=== PATIENT | female | born 1985 | race Caucasian/White ===

== ENCOUNTER 2017-05-05 00:36 | Emergency (ER) | payer OTHER ==
[~2017-05-05] VITALS: Ht 165.1 cm; Wt 58.5 kg
[~2017-05-05 00:36] MED LIST: IBUP-238 PO; Z.0.BCPILL PO; ZITH250T PO
[2017-05-05 00:48] VITALS: BP 90/59; PULSE 64; RESP 16; TEMP 97.6; O2SAT 100
--- NOTE | 2017-05-05 01:09 | PD ---
HPI Chief Complaint: syncope Time Seen by Provider: 00:54 Travel History International Travel<30 days: No Contact w/Intl Traveler<30days: No Traveled to known affect area: No History of Present Illness HPI 31-year-old female was brought in by her was syncope lightheadedness dizziness and nausea. Patient states the symptoms started about an hour prior coming to the emergency room. Patient was sitting down with her on the couch. Her went outside and he heard a noise of patient falling down. Patient was awake when he came to her. Patient's was helping the patient to the bathroom and patient had a syncopal episode. Patient was pale and diaphoretic at that time. Patient's states that episode lasted about a minute. Patient denies any headache. Patient denies any visual change. Patient denies any neck pain. Patient denies any chest pain or shortness of breath. Patient denies abdominal pain. Patient states that she has nausea but no vomiting or diarrhea. Patient denies any dysuria or frequency. Patient denies any vaginal discharge or bleeding. Patient denies any fever chills. Patient had similar syncopal episode a few years ago. Patient's states that she was dehydrated and hypotensive at that time. Patient states that she has been taking Araseli for the past 2 days for allergy. Patient denies any alcohol or drug abuse. PFSH Past Medical History Diminished Hearing: No Gestational Age in Weeks: 20 Immunizations Current: Yes : 1 Para: 1 Past Surgical History Other Surgery: Yes (BREAST AUGMENTATION) Social History Alcohol Use: No Tobacco Use: No Substance Use: No Allergies-Medications (Allergen,Severity, Reaction): Coded Allergies: No Known Allergies (Verified , 05/05/17) Reported Meds & Prescriptions Reported Meds & Active Scripts Active No Active Prescriptions or Reported Medications Review of Systems General / Constitutional: No: Fever Eyes: No: Visual changes HENT: Positive: Lightheadedness, No: Headaches Cardiovascular: No: Chest Pain or Discomfort Respiratory: No: Shortness of Breath Gastrointestinal: Positive: Nausea, No: Abdominal Pain Genitourinary: No: Dysuria Musculoskeletal: No: Pain Skin: No Rash Neurologic: No: Weakness Psychiatric: No: Depression Endocrine: No: Polydipsia Hematologic/Lymphatic: No: Easy Bruising Physical Exam Narrative GENERAL: Well-nourished, well-developed patient. SKIN: Focused skin assessment warm/dry. HEAD: Normocephalic. EYES: No scleral icterus. No injection or drainage. NECK: Supple, trachea midline. No JVD or lymphadenopathy. CARDIOVASCULAR: Regular rate and rhythm without murmurs, gallops, or rubs. RESPIRATORY: Breath sounds equal bilaterally. No accessory muscle use. GASTROINTESTINAL: Abdomen soft, non-tender, nondistended. MUSCULOSKELETAL: No cyanosis, or edema. BACK: Nontender without obvious deformity. No CVA tenderness. Neurologic exam: Patient's awake and alert oriented 3. No obvious focal neurological deficit. Data Data Last Documented VS Vital Signs Date Time Temp Pulse Resp B/P Pulse Ox O2 Delivery O2 Flow Rate FiO2 05/05/17 01:07 Room Air 05/05/17 00:48 97.6 64 16 90/59 100 Orders Electrocardiogram (05/05/17 01:02) Complete Blood Count With Diff (05/05/17 01:02) Comprehensive Metabolic Panel (05/05/17 01:02) Urinalysis - C+S If Indicated (05/05/17 01:02) Thyroid Stimulating Hormone (05/05/17 01:02) Chest, Single Ap (05/05/17 01:02) Iv Access Insert/Monitor (05/05/17 01:02) Ecg Monitoring (05/05/17 01:02) Oximetry (05/05/17 01:02) Ed Urine Pregnancytest Poc (05/05/17 01:02) Sodium Chlor 0.9% 1000 Ml Inj (Ns 1000 M (05/05/17 01:15) Sodium Chlor 0.9% 1000 Ml Inj (Ns 1000 M (05/05/17 01:15) Ceftriaxone Inj (Rocephin Inj) (05/05/17 02:00) Labs Laboratory Tests Test 05/05/17 01:20 White Blood Count 7.4 TH/MM3 Red Blood Count 4.36 MIL/MM3 Hemoglobin 13.7 GM/DL Hematocrit 39.6 % Mean Corpuscular Volume 90.9 FL Mean Corpuscular Hemoglobin 31.5 PG Mean Corpuscular Hemoglobin 34.6 % Concent Red Cell Distribution Width 11.9 % Platelet Count 218 TH/MM3 Mean Platelet Volume 9.4 FL Neutrophils (%) (Auto) 54.2 % Lymphocytes (%) (Auto) 37.3 % Monocytes (%) (Auto) 3.3 % Eosinophils (%) (Auto) 4.5 % Basophils (%) (Auto) 0.7 % Neutrophils # (Auto) 4.1 TH/MM3 Lymphocytes # (Auto) 2.7 TH/MM3 Monocytes # (Auto) 0.2 TH/MM3 Eosinophils # (Auto) 0.3 TH/MM3 Basophils # (Auto) 0.1 TH/MM3 CBC Comment DIFF FINAL Differential Comment Urine Color YELLOW Urine Turbidity SLIGHT Urine pH 6.0 Urine Specific [place] 1.027 Urine Protein 30 mg/dL Urine Glucose (UA) NEG mg/dL Urine Ketones 15 mg/dL Urine Occult Blood TRACE Urine Nitrite NEG Urine Bilirubin NEG Urine Leukocyte Esterase NEG Urine RBC 10-14 /hpf Urine WBC 6-8 /hpf Urine Squamous Epithelial > 8 /hpf Cells Urine Bacteria FEW /hpf Urine Hyaline Casts 3-5 /lpf Urine Mucus MOD /lpf Microscopic Urinalysis Comment CULT NOT INDICATED Sodium Level 142 MEQ/L Potassium Level 3.8 MEQ/L Chloride Level 106 MEQ/L Carbon Dioxide Level 26.5 MEQ/L Anion Gap 10 MEQ/L Blood Urea Nitrogen 18 MG/DL Creatinine 0.82 MG/DL Estimat Glomerular Filtration 81 ML/MIN Rate Random Glucose 84 MG/DL Calcium Level 8.3 MG/DL Total Bilirubin 0.3 MG/DL Aspartate Amino Transf 28 U/L (AST/SGOT) Alanine Aminotransferase 30 U/L (ALT/SGPT) Alkaline Phosphatase 63 U/L Total Protein 7.2 GM/DL Albumin 3.8 GM/DL Thyroid Stimulating Hormone 1.590 uIU/ML 3rd Gen [facility] Medical Decision Making Medical Screen Exam Complete: Yes Emergency Medical Condition: Yes Interpretation(s) Last Impressions Chest X-Ray 05/05/17 0102 Signed Impressions: Service Date/Time: Friday, May 05, 2017 01:05 - CONCLUSION: Normal examination. Prince Corbett MD 1358 AM. CBC within normal limit. CMP within normal limit. UA positive for WBC or RBC bacteria. Differential Diagnosis Differential diagnosis including vasovagal reaction, dehydration, electrolyte imbalance, TIA, CVA, arrhythmia, sepsis. Narrative Course 31-year-old female with syncope. Patient's hypotensive. Normal saline solution 2 L IV bolus. Rocephin 1 g IV. Diagnosis Primary Impression: Dehydration Additional Impression: UTI (urinary tract infection) Qualified Code: N30.00 - Acute cystitis without hematuria Additional Instructions: Encourage by mouth fluid. Take Bactrim DS as directed. Follow-up with personal physician. Return if worse. Med/Other Pt SpecificInfo: Prescription(s) given Scripts Sulfamethoxazole-Trimethoprim (Bactrim DS)800-160 Mg Tab1 Tab PO BID #14 TAB Prov:Jose Scott MD 05/05/17 Disposition: 01 DISCHARGE HOME Condition: Stable Jose Scott MD May 05, 2017 01:09
[2017-05-05] MEDS ORDERED: SODIUM CHLOR 0.9% 1000 ML INJ 1,000 ML IV ONE ×2 (01:15)
--- NOTE | 2017-05-05 01:24 | RADRPT ---
EXAM DATE/TIME: 05/05/2017 01:05 [facility] COMPARISON: No previous studies available for comparison. INDICATIONS : Shortness of breath. MEDICAL HISTORY : None. SURGICAL HISTORY : None. ENCOUNTER: Initial ACUITY: 1 day PAIN SCORE: 0/10 LOCATION: Bilateral chest FINDINGS: A single view of the chest demonstrates the lungs to be symmetrically aerated without evidence of mas s, infiltrate or effusion. The cardiomediastinal contours are unremarkable. Osseous structures are intact. CONCLUSION: Normal examination. Prince Corbett MD on May 05, 2017 at 1:22 Board Certified Radiologist. This report was verified electronically.
[2017-05-05 01:36] LABS: AUTOMATED NEUTROPHIL # 4.1 TH/MM3 (1.8-7.7); BASOPHIL # 0.1 TH/MM3 (0-0.2); BASOPHIL % 0.7 % (0.0-2.0); BLOOD, URINE TRACE (NEG); EOSINOPHIL # 0.3 TH/MM3 (0-0.4); EOSINOPHIL % 4.5 % (0.0-4.0); GLUCOSE,URINE NEG (NEG); HEMATOCRIT 39.6 % (35.0-46.0); HEMO FLAGS DIFF FINAL; KETONE, URINE 15 mg/dL (NEG); LYMPH % 37.3 % (9.0-44.0); LYMPHOCYTE # 2.7 TH/MM3 (1.0-4.8); MEAN CELL VOLUME 90.9 FL (80.0-100.0); MEAN CORPUSCULAR HEMOGLOBIN 31.5 PG (27.0-34.0); MEAN CORPUSCULAR HGB CONC 34.6 % (32.0-36.0); MONO % 3.3 % (0.0-8.0); NEUT % 54.2 % (16.0-70.0); NITRITE,URINE NEG (NEG); PLATELET COUNT 218 TH/MM3 (150-450); RED BLOOD COUNT 4.36 MIL/MM3 (4.00-5.30); RED CELL DISTRIBUTION WIDTH 11.9 % (11.6-17.2); WHITE BLOOD COUNT 7.4 TH/MM3 (4.0-11.0)
[2017-05-05 01:43] LABS: CHLORIDE 106 MEQ/L (98-107); SODIUM (NA) 142 MEQ/L (136-145)
[2017-05-05 01:45] LABS: MUCUS URINE MOD /lpf (OCC); SQUAMOUS EPITHELIAL CELL URINE > 8 /hpf (0-5); URINE COLOR YELLOW (YELLW/STRAW)
[2017-05-05 01:46] LABS: BACTERIA, URINE FEW /hpf
[2017-05-05 01:47] LABS: ANION GAP 10 MEQ/L (5-15); BICARBONATE 26.5 MEQ/L (21.0-32.0); BLOOD UREA NITROGEN 18 MG/DL (7-18); COMMENT (UR) CULT NOT INDICATED; CULTURE IF INDICATED CULT NOT INDICATED
[2017-05-05 01:50] VITALS: BP 111/65; PULSE 75; RESP 16; O2SAT 98
[2017-05-05 01:50] LABS: ALT (GPT) 30 U/L (10-53); AST (GOT) 28 U/L (15-37); GLOMERULAR FILTRATION RATE 81 ML/MIN (>89)
[2017-05-05 01:52] LABS: TOTAL BILIRUBIN ADULT 0.3 MG/DL (0.2-1.0)
[2017-05-05 01:53] LABS: ALKALINE PHOSPHATASE 63 U/L (45-117)
[2017-05-05 01:58] LABS: POTASSIUM 3.8 MEQ/L (3.5-5.1)
[2017-05-05] MEDS ORDERED: cefTRIAXone INJ 1,000 MG in SODIUM CHLORIDE 0.9% INJ 100 ML IV ONE (02:00)
[2017-05-05] MEDS ORDERED: BACT800T5 PO (02:05)
[2017-05-05 02:59] VITALS: BP 116/78
--- NOTE | 2017-05-05 13:22 | EKG ---
Date Performed: 05/05/2017 Time Performed: 01:10:14 PTAGE: 31 years EKG: SINUS BRADYCARDIA WITH SINUS ARRHYTHMIA POSSIBLE RIGHT VENTRICULAR CONDUCTION DELAY BORDERL INE ECG Compared to prior tracing no significant change PREVIOUS TRACING : 10/16/2009 00.35 DOCTOR: Unruly Strange Interpretating Date/Time 05/05/2017 13:20:39
== END 2017-05-05 03:10 | disposition home or self-care (01) ==
LOC: PHED 00:36
DX: E86.0 Dehydration (principal); N30.00 Acute cystitis without hematuria; R94.31 Abnormal electrocardiogram [ECG] [EKG]; I95.9 Hypotension, unspecified; R11.0 Nausea
CPT/HCPCS: 71010; 80053; 81001; 84443; 84703; 85025; 93005; 96360; 96361; 96365; 99285; J0696; J7030

== ENCOUNTER 2017-08-02 14:25 | Emergency (ER) | payer OTHER ==
[~2017-08-02] VITALS: Ht 165.1 cm; Wt 59.4 kg
[~2017-08-02 14:25] MED LIST changes: +BACT800T5 PO; -IBUP-238 PO; -Z.0.BCPILL PO; -ZITH250T PO
[2017-08-02 14:27] VITALS: BP 124/78; PULSE 94; RESP 18; TEMP 99; O2SAT 99
[2017-08-02] MEDS ORDERED: HYDR-3534 PO (15:40)
[2017-08-02] MEDS ORDERED: AMOX500C PO (15:40)
--- NOTE | 2017-08-02 15:40 | PD ---
HPI Chief Complaint: Headache Time Seen by Provider: 15:26 Travel History International Travel<30 days: No Contact w/Intl Traveler<30days: No Traveled to known affect area: No History of Present Illness HPI 32-year-old female is having headache. She's having headache behind both of her eyes as a throbbing type of pain. It's worse when she bends over. It started Friday night. She developed some fever and is had some mild congestion. Started on the left side and now is on both sides. Did not start suddenly. She does not have a history of migraine headaches and generally quite healthy. There is no chance of . PFSH Past Medical History Medical History: Denies Significant Hx Diminished Hearing: No Gestational Age in Weeks: 20 Immunizations Current: Yes Tetanus Vaccination: Unknown Influenza Vaccination: Yes ?: Not LMP: 1.5 WEEK AGO : 1 Para: 1 Past Surgical History Section: Yes Oral Surgery: Yes (wisdom teeth) Other Surgery: Yes (BREAST AUGMENTATION) Social History Alcohol Use: Yes (occ) Tobacco Use: No Substance Use: No Allergies-Medications (Allergen,Severity, Reaction): Coded Allergies: No Known Allergies (Verified , 08/02/17) Reported Meds & Prescriptions Reported Meds & Active Scripts Active Review of Systems General / Constitutional: Positive: Fever, No: Chills Eyes: No: Diploplia, Blurred Vision HENT: Positive: Rhinitis, No: Headaches, Nosebleed, Earache Cardiovascular: No: Chest Pain or Discomfort, Palpitations Respiratory: No: Cough, Shortness of Breath Gastrointestinal: No: Vomiting, Diarrhea Genitourinary: No: Dysuria Musculoskeletal: No: Myalgias, Arthralgias Skin: No Rash Neurologic: Positive: Headache, No: Weakness Endocrine: No: Heat Intolerance Hematologic/Lymphatic: No: Easy Bruising Physical Exam Narrative GENERAL: Well-developed female SKIN: Focused skin assessment warm/dry. HEAD: Atraumatic. Normocephalic. EYES: Pupils equal and round. No scleral icterus. No injection or drainage. ENT: No nasal bleeding. There is thick nasal discharge. The nasal mucosa is extremely erythematous and swollen. She is tender over both maxillary sinuses Mucous membranes pink and moist. NECK: Trachea midline. No JVD. Neck is supple CARDIOVASCULAR: Regular rate and rhythm. No murmur appreciated. RESPIRATORY: No accessory muscle use. Clear to auscultation. Breath sounds equal bilaterally. GASTROINTESTINAL: Abdomen soft, non-tender, nondistended. Hepatic and splenic margins not palpable. MUSCULOSKELETAL: No obvious deformities. No clubbing. No cyanosis. No edema. NEUROLOGICAL: Awake and alert. No obvious cranial nerve deficits. Motor grossly within normal limits. Normal speech. PSYCHIATRIC: Appropriate mood and affect; insight and judgment normal. Data Data Last Documented VS Vital Signs Date Time Temp Pulse Resp B/P (MAP) Pulse Ox O2 Delivery O2 Flow Rate FiO2 08/02/17 14:27 99.0 94 18 124/78 (93) 99 MDM Medical Decision Making Medical Screen Exam Complete: Yes Emergency Medical Condition: Yes Medical Record Reviewed: Yes Differential Diagnosis Differential includes tension headache, migraine headache, sinus headache Narrative Course I believe the patient is having a sinus headache. She has a lot of nasal congestion and this headache started with fever. She'll be placed on amoxicillin and Lortab for pain Diagnosis Primary Impression: Sinus headache Scripts Hydrocodone-Acetaminophen (Lortab) 7.5-325 Mg Tab 1 TAB PO Q4H Y for PAIN, #20 TAB 0 Refills Prov: Binh Gilmore MD 08/02/17 Amoxicillin (Amoxicillin) 500 Mg Cap 500 MG PO TID for Infection for 10 Days, CAP 0 Refills Prov: Binh Gilmore MD 08/02/17 Disposition: 01 DISCHARGE HOME Condition: Stable Binh Gilmore MD Aug 02, 2017 15:40
[2017-08-02 15:47] VITALS: BP 106/74; PULSE 88; RESP 16; O2SAT 99
== END 2017-08-02 15:49 | disposition home or self-care (01) ==
LOC: PHED 14:25
DX: R51 Headache (principal)
CPT/HCPCS: 99284